=== PATIENT | male | born 1960 | race Caucasian/White ===

== ENCOUNTER 2021-09-12 08:24 | Outpatient (CLI) | payer OTHER, SELFPAY ==
--- NOTE | 2021-09-12 08:45 | MR_ITS ---
WS: [id number] MRI HEAD WITHOUT CONTRAST TECHNIQUE: Sagittal T1, T2 axial, T2 axial FLAIR, axial and coronal T1 images, axial susceptibility w eighted imaging, axial diffusion weighted images, and coronal T2 images were obtained. CLINICAL INFORMATION: I63.9 - Cerebral infarction, unspecified COMPARISON: None. FINDINGS: No evidence restricted diffusion to suggest acute ischemia. Ventricular system and basal cisterns are patent. Mild small vessel changes. Moderate volume loss. Normal posterior fossa. Normal vascular jak w voids at the skull base. No extra-axial fluid collections. No evidence of mass or mass effect. [place] Man teodoro lacunar infarct LEFT basal ganglia. Mucosal thickening with partial opacification RIGHT mastoid a ir cells. Mild mucosal thickening LEFT mastoid tip. Small retention cyst LEFT maxillary sinus. No hemosiderin on susceptibly weighted images. Normal optic chiasm and pituitary infundibulum. Normal cavernous sinuses and Meckel's cave. Mild to moderate symmetric atrophy temporal lobes and hippocamp al formations. MR/MR head wo con* [id number] IMPRESSION: 1. No evidence of restricted diffusion to suggest acute ischemia. 2. Mild small vessel changes with mild parenchymal volume loss. 3. Partial opacification RIGHT mastoid air cells. Mild mucosal thickening LEFT mastoid tip. 4. Small retention cyst LEFT maxillary sinus. Mild mucosal thickening in the m axillary sinuses and ethmoid air cells. 5. No hemosiderin on susceptibility weighted images. 6. Small chronic lacunar infarct LEFT basal ganglia. 7. No other acute findings.
== END 2021-09-12 08:25 | disposition home or self-care (01) ==
LOC: RAD 08:30
PROVIDERS: PCP Internal Medicine; Visit Provider Nurse Practitioner
DX: I63.9 Cerebral infarction, unspecified (principal)
CPT/HCPCS: 70551

== ENCOUNTER 2024-03-16 14:01 | Outpatient (CLI) | payer MEDICARE, BC, SELFPAY ==
--- NOTE | 2024-03-16 14:11 | MR_ITS ---
WS: [id number] MRI LUMBAR SPINE NONCONTRAST TECHNIQUE: Sagittal T1, T2 and STIR imaging. Axial T1 and T2 imaging. CLINICAL INFORMATION: R SCIATIC W/NEUROLOGICAL DEFICITS/LOW BACK PAIN COMPARISON: None. FINDINGS: Mild lumbar curve. No acute compression. No high-grade central canal stenosis. Chronic spondylolisthe sis L5 on S1 measuring 3 mm. L1-L2: Mild annular bulging. Mild facet arthropathy. Spinal canal and foramen are patent. L2-L3: Mild disc bulge and narrowing LEFT subarticular recess. Mild facet arthropathy. Mild LEFT and no significant RIGHT foraminal narrowing. L3-L4: Mild annular bulging. Impingement RIGHT subarticular recess and traversing RIGHT L4 nerve root . Moderate facet arthropathy. Mild RIGHT foraminal narrowing. L4-L5: Shallow central protrusion. Impingement traversing L5 nerve roots bilaterally LEFT greater milly n RIGHT. Moderate facet arthropathy. Mild RIGHT and no significant LEFT foraminal narrowing. L5-S1: Chronic spondylolisthesis. Mild facet arthropathy. RIGHT foraminal protrusion impinges the exi ting RIGHT L5 nerve root. Recommend correlation for RIGHT L5 nerve root symptoms. Mild LEFT foraminal narrowing. Visualized pelvic bony structures: Normal. Paravertebral soft tissues: Normal. Central disc protrusions in the cervical spine on the lead java developer architect imaging with mild to moderate central can al stenosis at C4-C5 and C5-C6. This could be further evaluated with cervical spine MRI. MR/MR lumbar spine wo con* [id number] IMPRESSION: 1. Chronic spondylolisthesis L5 on S1 measuring 3 mm. 2. RIGHT foraminal protrusion L5-S1 impinges the exiting RIGHT L5 nerve root. Recommend correlation for RIGHT L5 nerve root symptoms. 3. Narrowing of the LEFT L2-3 subarticular recess with mild LEFT foraminal melany rowing. 4. Narrowing of the RIGHT L3-4 subarticular recess with mild RIGHT foraminal n arrowing. 5. Central disc protrusion L4-5 with impingement traversing L5 nerve roots maria elena aterally.
== END 2024-03-16 14:02 | disposition home or self-care (01) ==
LOC: RAD 14:06
PROVIDERS: PCP Family Medicine; Visit Provider Family Medicine
DX: M43.16 Spondylolisthesis, lumbar region (principal); M54.16 Radiculopathy, lumbar region; M47.896 Other spondylosis, lumbar region; M51.24 Other intervertebral disc displacement, thoracic region; M99.63 Osseous and subluxation stenosis of intervertebral foramina of lumbar region; M43.18 Spondylolisthesis, sacral and sacrococcygeal region
CPT/HCPCS: 72148